=== PATIENT | male | born 1965 | race Caucasian/White ===

== ENCOUNTER 2022-11-14 14:50 | Outpatient (REF) | payer SELFPAY ==
[2022-11-14 15:10] LABS: IDNOW Serial# 08D9AD1C
[2022-11-14 15:11] LABS: Strep A Nucleic Acid Negative (Negative)
== END 2022-11-14 14:51 | disposition home or self-care (01) ==
LOC: HO.MMNH2L 14:50
PROVIDERS: Visit Provider Family Medicine
DX: Z11.2 Encounter for screening for other bacterial diseases (principal)
CPT/HCPCS: 36415; 87651